=== PATIENT | female | born 1960 | race American Indian/Alaskan Native ===

== ENCOUNTER 2019-07-15 06:48 | Observation (INO) | payer BC, OTHER ==
[2019-07-15 08:49] LABS: Basophils % (Auto) 0.8 % (0.0-1.8); Eosinophils # (Auto) 0.1 K/mm3 (0.0-0.4); Eosinophils % (Auto) 2.2 % (0.0-4.3); Hematocrit 40.5 % (30.3-42.9); Hemoglobin 13.4 gm/dl (10.1-14.3); Lymphocytes # (Auto) 1.8 K/mm3 (1.2-5.4); Lymphocytes % (Auto) 34.3 % (13.4-35.0); Mean Corpuscular HGB Conc 33 % (30-34); Mean Corpuscular Volume 90 fl (79-97); Monocytes # (Auto) 0.8 K/mm3 (0.0-0.8); Monocytes % (Auto) 14.2 % (0.0-7.3); Platelet Count 144 K/mm3 (140-440); Red Blood Count 4.49 M/mm3 (3.65-5.03); Red Cell Distribution Width 13.2 % (13.2-15.2)
--- NOTE | 2019-07-15 09:05 | XRay Report ---
CHEST 1 VIEW INDICATION / CLINICAL INFORMATION: Chest Pain. COMPARISON: None available. FINDINGS: SUPPORT DEVICES: None. HEART / MEDIASTINUM: No significant abnormality. LUNGS / PLEURA: No significant pulmonary or pleural abnormality. No pneumothorax. ADDITIONAL FINDINGS: Degenerative changes are noted in the thoracic spine. IMPRESSION: 1. No acute findings. Signer Name: Steven Carrero MD Signed: 07/15/2019 9:01 AM Workstation Name: [id number]
[2019-07-15 09:17] LABS: BUN/Creatinine Ratio 28; Blood Urea Nitrogen 17 mg/dL (7-17); Calcium 10.2 mg/dL (8.4-10.2); Hemolysis Index 31
[2019-07-15] MEDS ORDERED: ONDANSETRON 4 MG/2 ML INJ IV ONE (11:46)
[2019-07-15] MEDS ORDERED: NITROGLYCERIN 0.4 MG TAB SUBL SL ONE ×2 (11:46→14:11)
[2019-07-15] MEDS ORDERED: SODIUM CHLORIDE 0.9% 1000 ML 1,000 ML IV ONE (11:46)
[2019-07-15] MEDS ORDERED: MORPHINE 2 MG/1 ML INJ IV ONE (11:46)
[2019-07-15] MEDS ORDERED: ASPIRIN 325 MG TAB PO ONE (11:47)
[2019-07-15 12:27] LABS: INR 0.94 (0.87-1.13)
[2019-07-15 12:28] LABS: Partial Thromboplastin Time 25.6 Sec. (24.2-36.6)
--- NOTE | 2019-07-15 13:35 | Emergency Department Report ---
ED Chest Pain HPI - General Chief Complaint: Chest Pain Stated Complaint: CHEST PAIN Time Seen by Provider: 07/15/19 11:35 Source: patient Mode of arrival: Ambulatory Limitations: No Limitations - History of Present Illness Initial Comments: This is a 59-year-old male nontoxic, well nourished in appearance, no acute signs of distress presents to the ED with c/o of left sided chest pain and shortness of breathe. Patient stated radiates to left chest area. Patient describes pain as sharp and tightness/heaviness with a sensation of "heavy person" sitting on chest. Patient denies any upper respiratory symptoms. Patient denies any hemoptysis, fever, chills, nausea, vomiting, headache, stiff neck, numbness, tingling, abdominal pain. Patient denies aggravated or relieving if symptoms. Patient denies any recent travels or long car rides. Patient denies any recent surgeries or any sick contacts. Patient stated allergies to Flagyl. MD Complaint: chest pain -: days(s) Pain Location: left chest Pain Radiation: LUE Severity: moderate Severity scale (0 -10): 8 Quality: tightness, aching, heaviness Consistency: constant Improves With: nothing Worsens With: nothing re: denies: nausea, vomting, diaphoresis, dyspnea, sense of impending doom Other Symptoms: denies: cough, fever, syncope, rash, acid taste in mouth, leg swelling, palpitations, burping Treatments Prior to Arrival: none Aspirin use within the Past 7 Days: (0) No - Related Data On Oral Contraceptives: No Home Medications Medication Instructions Recorded Confirmed Last Taken ALBUTEROL Inhaler (OR & NICU) 1 puff IH DAILY 06/23/14 03/01/16 07/07/14 [ProAir HFA Inhaler] Montelukast [Singulair] 10 mg PO DAILY 06/23/14 03/01/16 07/06/14 Hydroxychloroquine 200 mg PO DAILY 03/01/16 03/01/16 Unknown Previous Rx's Medication Instructions Recorded Last Taken Type Ferrous Sulfate [Feosol 325 MG tab] 325 mg PO BID #60 tablet 07/08/14 Unknown Rx HYDROcodone/APAP 5-325 [[place] 1 each PO Q6HR PRN #10 tablet 03/01/16 Unknown Rx 5/325] Allergies Allergy/AdvReac Type Severity Reaction Status Date / Time metronidazole [From Flagyl] AdvReac Itching Verified 06/23/14 13:28 Heart Score - HEART Score History: Moderately suspicious EKG: Normal Age: 45-65 Risk factors: > 3 risk factors or hx of atherosclerotic disease Troponin: < normal limit HEART Score: 4 ED Review of Systems ROS: Stated complaint: CHEST PAIN Other details as noted in HPI Constitutional: denies: chills, fever Eyes: denies: eye pain, eye discharge, vision change ENT: denies: ear pain, throat pain Respiratory: shortness of breath. denies: cough, wheezing Cardiovascular: chest pain. denies: palpitations Endocrine: no symptoms reported Gastrointestinal: denies: abdominal pain, nausea, diarrhea Genitourinary: denies: urgency, dysuria, discharge Musculoskeletal: denies: back pain, joint swelling, arthralgia Skin: denies: rash, lesions Neurological: denies: headache, weakness, paresthesias Psychiatric: denies: anxiety, depression Hematological/Lymphatic: denies: easy bleeding, easy bruising ED Past Medical Hx - Past Medical History Hx Hypertension: Yes (ONLY HAD 2 MONTHS, no meds) Hx Congestive Heart Failure: No Hx Diabetes: No Hx Renal Disease: No Hx Headaches / Migraines: No Hx Asthma: Yes (Last inhaler use 2 months ago) Hx COPD: No - Social History Smoking Status: Never Smoker - Medications Home Medications: Home Medications Medication Instructions Recorded Confirmed Last Taken Type ALBUTEROL Inhaler (OR & NICU) 1 puff IH DAILY 06/23/14 03/01/16 07/07/14 History [ProAir HFA Inhaler] Montelukast [Singulair] 10 mg PO DAILY 06/23/14 03/01/16 07/06/14 History Ferrous Sulfate [Feosol 325 MG tab] 325 mg PO BID #60 tablet 07/08/14 03/01/16 Unknown Rx HYDROcodone/APAP 5-325 [[place] 1 each PO Q6HR PRN #10 tablet 03/01/16 Unknown Rx 5/325] Hydroxychloroquine 200 mg PO DAILY 03/01/16 03/01/16 Unknown History ED Physical Exam - General Limitations: No Limitations General appearance: alert, in no apparent distress - Head Head exam: Present: atraumatic, normocephalic - Neck Neck exam: Present: normal inspection, full ROM. Absent: tenderness, meningismus, lymphadenopathy - Respiratory Respiratory exam: Present: normal lung sounds bilaterally. Absent: respiratory distress, wheezes, rales, rhonchi, stridor, chest wall tenderness, accessory muscle use, decreased breath sounds, prolonged expiratory - Cardiovascular Cardiovascular Exam: Present: regular rate, normal rhythm, normal heart sounds. Absent: bradycardia, tachycardia, irregular rhythm, systolic murmur, diastolic murmur, rubs, gallop - GI/Abdominal GI/Abdominal exam: Present: soft, normal bowel sounds. Absent: distended, tenderness, guarding, rebound, rigid, diminished bowel sounds - Extremities Exam Extremities exam: Present: normal inspection, full ROM, normal capillary refill - Back Exam Back exam: Present: normal inspection, full ROM - Neurological Exam Neurological exam: Present: alert, oriented X3, normal gait - Psychiatric Psychiatric exam: Present: normal affect, normal mood - Skin Skin exam: Present: warm, dry, intact, normal color. Absent: rash ED Course Vital Signs 07/15/19 07/15/19 07/15/19 06:52 11:35 11:49 Temperature 97.9 F 98.9 F Pulse Rate 90 Respiratory 18 Rate Blood Pressure 156/86 O2 Sat by Pulse 96 97 Oximetry 07/15/19 07/15/19 07/15/19 12:00 12:15 12:30 Temperature Pulse Rate 78 80 72 Respiratory 11 L 14 13 Rate Blood Pressure 149/85 165/97 163/88 O2 Sat by Pulse 96 97 97 Oximetry 07/15/19 07/15/19 07/15/19 12:45 13:00 13:16 Temperature Pulse Rate 81 74 Respiratory 14 12 Rate Blood Pressure 163/88 161/90 155/82 O2 Sat by Pulse 99 98 98 Oximetry - Reevaluation(s) Reevaluation #1: 07/15/19 13:36 Patient is speaking in full sentences with no signs of distress noted. - Consultations Consultation #1: 07/15/19 13:36 Patient has been consulted with Hardeep Menjivar about patient history, physical exam, and labs results and agrees to ED plan of care and admission. JULIETA score - Julieta Score Age > 65: (0) No Aspirin use within the Past 7 Days: (0) No 3 or more CAD Risk Factors: (1) Yes 2 or more Angina events in past 24 hrs: (1) Yes Known CAD with more than 50% Stenosis: (0) No Elevated Cardiac Markers: (0) No ST Deviation Greater than 0.5mm: (0) No JULIETA Score: 2 ED Medical Decision Making - Lab Data Result diagrams: 07/15/19 08:16 07/15/19 08:16 - Medical Decision Making This is a 59-year-old female that presents with chest pain and shortness of breathe. Patient is stable and was examined by me. Patient was consulted with Dr. Feng. JULIETA score 2 and HEART score 4 points Wells criteria for DVT/SVT/PE 0 points. Patient is admitted with Dr. Mensah (hospitalist). Patient further evaluation and treatment with possible stress tests/echocardiogram. At time of admission, the patient does not seem toxic or ill in appearance. No acute signs of distress noted. Patient agrees to admission treatment plan of care. No further questions noted by the patient. Critical care attestation.: If time is entered above; I have spent that time in minutes in the direct care of this critically ill patient, excluding procedure time. ED Disposition Clinical Impression: Shortness of breath Chest pain Qualifiers: Chest pain type: unspecified Qualified Code(s): R07.9 - Chest pain, unspecified Disposition: DC-09 OP ADMIT IP TO THIS HOSP Is pt being admited?: Yes Condition: Stable
[2019-07-15 13:52] LABS: Bilirubin,Urine NEG (Negative); Blood,Urine NEG (Negative); Color,Urine Yellow (Yellow); Protein,Urine <15 mg/dL mg/dL (Negative); Urobilinogen,Urine < 2.0 mg/dL (<2.0)
[2019-07-15 14:01] LABS: Amphetamine Screen,Urine PRESUMPTIVE NEGATIVE; Benzodiazepines Screen,Urine PRESUMPTIVE NEGATIVE; Cannabinoid Screen,Urine PRESUMPTIVE NEGATIVE; Cocaine Screen,Urine PRESUMPTIVE NEGATIVE; Methadone Screen,Urine PRESUMPTIVE NEGATIVE; Opiate Screen,Urine PRESUMPTIVE NEGATIVE
[2019-07-15] MEDS ORDERED: ASPIRIN 325 MG TAB ONE (14:11)
[2019-07-15] MEDS ORDERED: ONDANSETRON 4 MG/2 ML INJ ONE (14:11)
[2019-07-15] MEDS ORDERED: MORPHINE 2 MG/1 ML INJ ONE (14:12)
[2019-07-15] MEDS ORDERED: ONDANSETRON 4 MG/2 ML INJ IV PRN (14:46)
[2019-07-15] MEDS ORDERED: ACETAMINOPHEN 325 MG TAB PO PRN (14:46)
[2019-07-15] MEDS ORDERED: ALBUTEROL 2.5 MG/3 ML NEBU IH PRN (14:46)
--- NOTE | 2019-07-15 14:48 | History and Physical Report ---
History of Present Illness Chief complaint: I have pain in my chest History of present illness: 59-year-old female with hypertension, mild intermittent asthma, obesity hypoventilation syndrome presents to ED for evaluation. Patient states that she has experienced pain in her chest over the past 1 day with worsening symptoms over the past 4 hours. Patient states that her pain is 8/10, sharp, crushing in nature, and "feels as if someone is sitting on my chest", radiation to the left arm, not worsened with exertion, not relieved with rest. Patient transported to [facility] via private vehicle. Patient seen and evaluated in the emergency department. Patient acknowledges dyspnea on exertion, dyspnea at rest, and decreased exercise tolerance. Patient laboratory and imaging studies reviewed. Patient found to have angina as well as symptoms consistent with diastolic congestive heart failure. Patient placed in observation status and admitted to the medical floor. Patient admitted for medical stabilization and further cardiac evaluation. Patient denies fever, chills, nausea, vomiting, h eadache, numbness, tingling, abdominal pain, prolonged travel/immobility, individual/family history of DVT/ PE/ bleeding or blood clotting disorders. No prior admission for review. No medication listed for reconciliation at time of admission. Cardiology team consulted in ED. Past History Past Medical History: hyperlipidemia Past Surgical History: No surgical history, Other (reviewed) Social history: , lives with family. denies: smoking, alcohol abuse, prescription drug abuse Family history: diabetes, hypertension Medications and Allergies Allergies Allergy/AdvReac Type Severity Reaction Status Date / Time metronidazole [From Flagyl] AdvReac Itching Verified 06/23/14 13:28 Home Medications Medication Instructions Recorded Confirmed Last Taken Type ALBUTEROL Inhaler (OR & NICU) 1 puff IH DAILY 06/23/14 03/01/16 07/07/14 History [ProAir HFA Inhaler] Montelukast [Singulair] 10 mg PO DAILY 06/23/14 03/01/16 07/06/14 History Ferrous Sulfate [Feosol 325 MG tab] 325 mg PO BID #60 tablet 07/08/14 03/01/16 Unknown Rx HYDROcodone/APAP 5-325 [[place] 1 each PO Q6HR PRN #10 tablet 03/01/16 Unknown Rx 5/325] Hydroxychloroquine 200 mg PO DAILY 03/01/16 03/01/16 Unknown History Active Meds: Active Medications Acetaminophen (Tylenol) 650 mg PO Q4H PRN PRN Reason: Pain MILD(1-3)/Fever >100.5/WIGGINS Albuterol (Proventil) 2.5 mg IH Q4HRT PRN PRN Reason: Shortness Of Breath Ferrous Sulfate (Feosol) 325 mg PO BID COUNTS INCLUDE 234 BEDS AT THE [facility] Miscellaneous Medication (Hydroxychloroquine) 200 mg PO DAILY COUNTS INCLUDE 234 BEDS AT THE [facility] Montelukast Sodium (Singulair) 10 mg PO DAILY COUNTS INCLUDE 234 BEDS AT THE [facility] Ondansetron HCl (Zofran) 4 mg IV Q8H PRN PRN Reason: Nausea And Vomiting Sodium Chloride (Sodium Chloride Flush Syringe 10 Ml) 10 ml IV BID VIVEK Sodium Chloride (Sodium Chloride Flush Syringe 10 Ml) 10 ml IV PRN PRN PRN Reason: LINE FLUSH Review of Systems Constitutional: no weight loss, no weight gain, no fever, no chills Ears, nose, mouth and throat: no ear pain, no ear discharge, no nasal congestion Breasts: no change in shape, no swelling Cardiovascular: chest pain, decreased exercise tolerance, no rapid/irregular heart beat, no edema, no lightheadedness Respiratory: no cough, no cough with sputum, no shortness of breath Gastrointestinal: no nausea, no diarrhea, no constipation, no change in bowel habits Genitourinary Female: no pelvic pain, no flank pain, no menorrhagia, no urgency Rectal: no pain, no incontinence, no bleeding Musculoskeletal: no neck stiffness, no neck pain, no shooting arm pain, no arm numbness/tingling, no low back pain Integumentary: no rash, no pruritis, no redness, no sores, no jaundice, no boils Neurological: no head injury, no transient paralysis, no weakness, no parathesias, no numbness Psychiatric: no anxiety, no memory loss, no sleep disturbances, no hypersomnia, no change in libido, no suicidal ideation, no disorientation Endocrine: no cold intolerance, no heat intolerance, no polyphagia, no excessive thirst, no polydipsia, no polyuria, no nocturia Hematologic/Lymphatic: no easy bruising, no easy bleeding, no lymphadenopathy Allergic/Immunologic: no urticaria, no allergic rhinitis, no persistent infections, no angioedema Exam - Constitutional Vitals: Temp Pulse Resp BP Pulse Ox 98.9 F 74 12 155/82 98 07/15/19 11:35 07/15/19 13:00 07/15/19 13:00 07/15/19 13:16 07/15/19 13:16 General appearance: Present: mild distress, obese - EENT Eyes: Present: PERRL ENT: hearing intact, clear oral mucosa - Neck Neck: Present: supple, normal ROM - Respiratory Respiratory effort: normal Respiratory: bilateral: CTA - Cardiovascular Heart Sounds: Present: S1 & S2. Absent: rub, click - Extremities Extremities: pulses symmetrical, No edema Peripheral Pulses: within normal limits - Abdominal General gastrointestinal: Present: soft, non-tender, non-distended, normal bowel sounds Female genitourinary: Present: normal - Integumentary Integumentary: Present: clear, warm, dry - Musculoskeletal Musculoskeletal: gait normal, strength equal bilaterally - Psychiatric Psychiatric: appropriate mood/affect, intact judgment & insight, agitated - Neurologic Neurologic: CNII-XII intact, moves all extremities Results - Labs CBC & Chem 7: 07/15/19 08:16 07/15/19 08:16 Labs: Abnormal lab results 07/15/19 07/15/19 Range/Units 08:16 08:16 [place] % (Auto) 14.2 H (0.0-7.3) % Creatinine 0.6 L (0.7-1.2) mg/dL Glucose 147 H (65-100) mg/dL Assessment and Plan - Patient Problems (1) Angina at rest Current Visit: Yes Status: Acute Plan to address problem: Admit to telemetry, cardiology consulted, serial cardiac enzymes, EKG, chest x- ray, d-dimer, stress test in a.m. as per cardiology team. (2) Diastolic CHF Current Visit: Yes Status: Acute Qualifiers: Heart failure chronicity: acute Qualified Code(s): I50.31 - Acute diastolic (congestive) heart failure Plan to address problem: Echocardiogram, strict I&O, daily weight, afterload reduction, supplemental oxygen, pulse oximetry, BNP, chest x-ray. Cardiology consulted. (3) HTN (hypertension) Current Visit: Yes Status: Acute Qualifiers: Hypertension type: essential hypertension Qualified Code(s): I10 - Essential (primary) hypertension Plan to address problem: Monitor blood pressure every shift, continue medical management. (4) Obesity hypoventilation syndrome Current Visit: Yes Status: Acute Plan to address problem: Supplemental oxygen, pulse oximetry, noninvasive positive pressure ventilation as clinically indicated, early ambulation, balanced diet increase physical activity at discharge. (5) DVT prophylaxis Current Visit: Yes Status: Acute Plan to address problem: SCD to bilateral lower extremities while in bed, patient ambulatory.
[2019-07-15] MEDS ORDERED: NITROGLYCERIN 0.4 MG TAB SUBL SL PRN (15:54)
[2019-07-15] MEDS: FERROUS SULFATE 325 MG TAB PO SCH (21:28)
[2019-07-16 05:43] LABS: Chol/HDL Ratio 3.84 %
[2019-07-16] MEDS ORDERED: REGADENOSON 0.4 MG/5 ML INJ IV ONE (07:24)
[2019-07-16] MEDS ORDERED: HYDROXYCHLOROQUINE 200 MG TAB PO SCH (10:00)
[2019-07-16] MEDS ORDERED: MONTELUKAST 10 MG TAB PO SCH (10:00)
[2019-07-16] MEDS ORDERED: ASPIRIN EC 325 MG TAB PO SCH (10:00)
[2019-07-16] MEDS ORDERED: HYDROXYCHLOROQUINE 200 MG PO SCH (10:00)
[2019-07-16 13:06] VITALS: BP 145/75
[2019-07-16] MEDS: FERROUS SULFATE 325 MG TAB PO SCH (13:12)
--- NOTE | 2019-07-16 13:15 | Consultation ---
History of Present Illness Consult date: 07/16/19 Consult reason: chest pain History of present illness: The patient is a 59-year-old woman with a history of hypertension and chronic asthma, presented with poorly characterized, atypical nonexertional chest pain. In the emergency room, the ECG was normal sinus rhythm, normal ECG with no ischemic changes. Serial cardiac troponin levels were normal. Today she underwent a stress test during which excess for 6 minutes of a [place] protocol, no chest pain and no ST changes. Test was stopped for fatigue. Thallium images show normal perfusion, normal left ventricular systolic function with ejection fraction 68%. Past History Past Medical History: hypertension, hyperlipidemia Past Surgical History: No surgical history, Other (reviewed) Social history: , lives with family. denies: smoking, alcohol abuse, prescription drug abuse Family history: diabetes, hypertension Medications and Allergies Allergies Allergy/AdvReac Type Severity Reaction Status Date / Time metronidazole [From Flagyl] AdvReac Itching Verified 06/23/14 13:28 Home Medications Medication Instructions Recorded Confirmed Last Taken Type ALBUTEROL Inhaler (OR & NICU) 1 puff IH DAILY 06/23/14 03/01/16 07/07/14 History [ProAir HFA Inhaler] Montelukast [Singulair] 10 mg PO DAILY 06/23/14 03/01/16 07/06/14 History Ferrous Sulfate [Feosol 325 MG tab] 325 mg PO BID #60 tablet 07/08/14 03/01/16 Unknown Rx HYDROcodone/APAP 5-325 [[place] 1 each PO Q6HR PRN #10 tablet 03/01/16 Unknown Rx 5/325] Hydroxychloroquine 200 mg PO DAILY 03/01/16 03/01/16 Unknown History Active Meds: Active Medications Acetaminophen (Tylenol) 650 mg PO Q4H PRN PRN Reason: Pain MILD(1-3)/Fever >100.5/WIGGINS Albuterol (Proventil) 2.5 mg IH Q4HRT PRN PRN Reason: Shortness Of Breath Aspirin (Ecotrin) 325 mg PO QDAY VIVEK Atorvastatin Calcium (Lipitor) 20 mg PO QHS [facility] Last Admin: 07/15/19 21:28 Dose: 20 mg Documented by: Ferrous Sulfate (Feosol) 325 mg PO BID [facility] Last Admin: 07/15/19 21:28 Dose: 325 mg Documented by: Hydroxychloroquine Sulfate (Plaquenil) 200 mg PO QDAY [facility] Montelukast Sodium (Singulair) 10 mg PO DAILY [facility] Nitroglycerin (Nitrostat) 0.4 mg SL Q5M PRN PRN Reason: Chest Pain Ondansetron HCl (Zofran) 4 mg IV Q8H PRN PRN Reason: Nausea And Vomiting Sodium Chloride (Sodium Chloride Flush Syringe 10 Ml) 10 ml IV BID [facility] Last Admin: 07/15/19 21:28 Dose: 10 ml Documented by: Sodium Chloride (Sodium Chloride Flush Syringe 10 Ml) 10 ml IV PRN PRN PRN Reason: LINE FLUSH Sodium Chloride (Sodium Chloride Flush Syringe 10 Ml) 10 ml IV PRN PRN PRN Reason: LINE FLUSH Review of Systems Cardiovascular: chest pain, shortness of breath, no orthopnea, no palpitations, no rapid/irregular heart beat, no edema, no syncope, no lightheadedness Physical Examination Vital Signs Temp Pulse Resp BP Pulse Ox 97.9 F 90 18 156/86 96 07/15/19 06:52 07/15/19 06:52 07/15/19 06:52 07/15/19 06:52 07/15/19 06:52 General appearance: no acute distress HEENT: Positive: PERRL Neck: Positive: neck supple Cardiac: Positive: Reg Rate and Rhythm Lungs: Positive: clear to auscultation Neuro: Positive: Grossly Intact Abdomen: Positive: Soft Female genitourinary: deferred Skin: Positive: Clear Extremities: Absent: edema Results 07/15/19 08:16 07/15/19 08:16 Lipids 07/15/19 Range/Units 21:10 Triglycerides 181 H (2-149) mg/dL Cholesterol 146 (50-199) mg/dL HDL Cholesterol 38 L (40-59) mg/dL Cholesterol/HDL Ratio 3.84 % EKG interpretations - Telemetry EKG Rhythm: Sinus Rhythm Assessment and Plan - Patient Problems (1) Chest pain Current Visit: Yes Status: Acute Qualifiers: Chest pain type: unspecified Qualified Code(s): R07.9 - Chest pain, unspecified Plan to address problem: Patient presented with atypical chest pain, ECGs and serial cardiac enzymes were negative. Exercise thallium stress test today was negative. No further cardiac chest pain workup is indicated, stable for cardiac discharge and outpatient follow-up in our office in 7-10 days. (2) HTN (hypertension) Current Visit: Yes Status: Acute Qualifiers: Hypertension type: essential hypertension Qualified Code(s): I10 - Essential (primary) hypertension Plan to address problem: Patient has persistent hypertension with systolic blood pressures as high as 150 s. I do not see antihypertensive medication listed on her home regimen. Recommend initiation of antihypertensive therapy with amlodipine, chlorthalidone and salt restricted diet. Follow-up in our office in 7-10 days for blood pressure recheck.
--- NOTE | 2019-07-16 14:46 | Discharge Summary ---
Providers - Providers Date of Admission: 07/15/19 14:46 Date of discharge: 07/16/19 Attending physician: KIKE ARREAGA 07/15/19 Consult to Cardiac Rehabilitation [CONS] Routine Reason For Exam: Phase I 07/15/19 15:54 Consult to Cardiology [CONS] Routine Consulting Provider: ESTEFANI SHETTY Reason For Exam: angina/chf Primary care physician: [facility], Hospitalization Condition: Stable Pertinent studies: CXR 2d echo MPI stress test Hospital course: 59-year-old female with hypertension, mild intermittent asthma, HLD presents to ED for evaluation of chest over the past 1 day. Patient admitted for medical stabilization and further cardiac evaluation. Cardiology team consulted in ED. we'll he is he Patient was evaluated in the ER, initial cardiac enzyme and EKG was unremarkable, chest x-ray showed no infiltrates. Patient underwent a stress test during which excess for 6 minutes of a [place] protocol, no chest pain and no ST changes. Test was stopped for fatigue. Thallium images show normal perfusion, normal left ventricular systolic function with ejection fraction 68%. Patient was then discharged home in stable condition with outpatient follow- up. Discharge diagnosis: Chest pain, likely from GERD HTN, stable Chronic asthma, stable HLD, stable Time spent for discharge: 34 minutes Core Measure Documentation - Palliative Care Palliative Care/ Comfort Measures: Not Applicable - Core Measures Any of the following diagnoses?: none Exam - Constitutional Vitals: Temp Pulse Resp BP Pulse Ox 98.0 F 81 18 145/75 94 07/16/19 04:22 07/16/19 13:02 07/16/19 08:09 07/16/19 13:02 07/16/19 13:02 Plan Activity: advance as tolerated Weight Bearing Status: Weight Bear as Tolerated Diet: low fat, low salt Prescriptions: AtorvaSTATin [Lipitor] 20 mg PO QHS #30 tab Aspirin EC [Halfprin EC] 81 mg PO QDAY #30 tablet.
--- NOTE | 2019-07-16 22:38 | Treadmill Report ---
THALLIUM STRESS TEST LEFT VENTRICLE: Left ventricular chamber size is within normal limits. Perfusion study demonstrates homogeneous uptake of the tracer in all segments, no significant defects identified. Gated analysis demonstrates normal left ventricular systolic function, ejection fraction 68%. CONCLUSION: Normal myocardial perfusion study. JOB# [id number] CA/NTS
== END 2019-07-16 17:30 | disposition home or self-care (01) ==
LOC: ED 06:48 → 3A 14:46 → 4A 18:46
PROVIDERS: ADMIT Internal Medicine; ATTEND Internal Medicine
DX: I20.8 Other forms of angina pectoris (principal); I11.0 Hypertensive heart disease with heart failure; I50.30 Unspecified diastolic (congestive) heart failure; J45.20 Mild intermittent asthma, uncomplicated; E66.2 Morbid (severe) obesity with alveolar hypoventilation; E78.5 Hyperlipidemia, unspecified; Z79.899 Other long term (current) drug therapy; Z88.1 Allergy status to other antibiotic agents; Z68.35 Body mass index [BMI] 35.0-35.9, adult
CPT/HCPCS: 36415; 71046; 78452; 80048; 80061; 80307; 81001; 82962; 83880; 84484; 85025; 85379; 85610; 85730; 93005; 93010; 93017; 93306; 96374; 96375; 99284; A9270; A9502; G0378; J2270; J2405; J2785; J7030